=== PATIENT | male | born 1955 | race Hispanic/Latino ===

== ENCOUNTER 2017-06-07 11:27 | Emergency (ER) | payer BC ==
[~2017-06-07] VITALS: Ht 165.1 cm; Wt 72.6 kg
[2017-06-07] MEDS ORDERED: CLONIDINE HCL 0.1 MG TAB PO ONE (12:15)
[2017-06-07] MEDS ORDERED: METFORMIN HCL500 MG PO (12:21)
[2017-06-07] MEDS ORDERED: METOPROLOL TART25 MG PO (12:21)
[2017-06-07] MEDS ORDERED: LISINOPRIL10 MG PO (12:21)
[2017-06-07] MEDS ORDERED: CLINDAMYCIN PHOS 600 MG/ 4 ML VIAL IM ONE (13:15)
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
[2017-06-07 15:14] VITALS: BP 182/84
== END 2017-06-07 15:28 | disposition home or self-care (01) ==
LOC: ER 11:27
DX: R07.89 Other chest pain (principal); S20.211A Contusion of right front wall of thorax, initial encounter; S22.41XA Multiple fractures of ribs, right side, initial encounter for closed fracture; L03.115 Cellulitis of right lower limb; V43.52XA Car driver injured in collision with other type car in traffic accident, initial encounter; E11.9 Type 2 diabetes mellitus without complications; I10 Essential (primary) hypertension
CPT/HCPCS: 71111; 99283

== ENCOUNTER → 2024-10-23 | Day surgery (SDC) | payer BC, MEDICARE ==
[2024-10-18 11:53] LABS: BASOPHILS % 0.6 % (0.0-1.0); EOSINOPHILS % 2.8 % (0.0-6.0); LYMPHOCYTES % 29.5 % (18.0-39.1); MONOCYTES % 7.1 % (4.4-11.3); NEUTROPHILS % 59.7 % (38.7-80.0); RED CELL DISTRIBUTION WIDTH 12.5 % (11.7-14.4)
[~2024-10-23] MED LIST: AMLODIPINE BESY10 MG PO; ASPIRIN81 MG PO; GABAPENTIN300 MG PO; GLIPIZIDE ER5 MG PO; GLUCAGON FOR INJ 1 MG VIAL ONE; HYOSCYAMINE SULFATE 0.5 MG/ML INJ ONE; LACTATED RINGER'S 1,000 ML ONE; LANTUS 3ML100 UNITS/ SC; LIDOCAINE HCL 2% LOCAL INJ 5 ML SDV VIAL INJ ONE; LIPITOR10 MG PO; LISINOPRIL10 MG PO; LOSARTAN POTAS100 MG PO; MECLIZINE HCL12.5 MG PO; METFORMIN HCL500 MG PO; METOPROLOL TART25 MG PO; PLAVIX75 MG PO; PROPOFOL IV EMULSION 10 MG/ML 20 ML VIAL ONE; SODIUM CHLORIDE 0.9% 100 ML ONE; VIT D PO
[2024-10-23 11:44] VITALS: TEMP 98
[2024-10-23 12:10] VITALS: BP 140/86; PULSE 90; RESP 16; O2SAT 98
== END | disposition home or self-care (01) ==
LOC: OR 08:53
PROVIDERS: ATTEND Internal Medicine Gastroenterology
DX: Z12.11 Encounter for screening for malignant neoplasm of colon (principal); D12.0 Benign neoplasm of cecum; K57.30 Diverticulosis of large intestine without perforation or abscess without bleeding; K64.8 Other hemorrhoids; I25.10 Atherosclerotic heart disease of native coronary artery without angina pectoris; I10 Essential (primary) hypertension; E78.5 Hyperlipidemia, unspecified; I73.9 Peripheral vascular disease, unspecified; E11.9 Type 2 diabetes mellitus without complications; Z01.810 Encounter for preprocedural cardiovascular examination; Z01.812 Encounter for preprocedural laboratory examination; Z79.82 Long term (current) use of aspirin; Z79.02 Long term (current) use of antithrombotics/antiplatelets; Z79.84 Long term (current) use of oral hypoglycemic drugs; Z79.4 Long term (current) use of insulin; Z79.899 Other long term (current) drug therapy
CPT/HCPCS: 36415 ×2; 45385; 82948; 85025; 88305; 93005; J1610; J1980; J2003; J2704; J7050; J7121; 45378